=== PATIENT | female | born 1965 | race Hispanic/Latino ===

== ENCOUNTER 2020-11-16 13:01 | Emergency (ER) | payer SELFPAY ==
[~2020-11-16] VITALS: Ht 152.4 cm; Wt 77.1 kg
[~2020-11-16 13:01] MED LIST: HYDROCHLOROTHIA25 MG PO; LORCET 10-6501 EACH PO; SOMA350 MG PO
== END 2020-11-16 14:52 | disposition home or self-care (01) ==
LOC: ER 13:10
DX: T18.9XXA Foreign body of alimentary tract, part unspecified, initial encounter (principal)
CPT/HCPCS: 99283